=== PATIENT | male | born 1975 | race Caucasian/White ===

== ENCOUNTER → 2019-10-31 09:12 | Outpatient (BNVA) | payer MEDICAID, SELFPAY | PROVIDERS: Visit Provider Orthopaedic Surgery | DX: M25.512 Pain in left shoulder (principal) | CPT/HCPCS: 73030 ==

== ENCOUNTER 2019-11-10 12:46 | Outpatient (CLI) | payer MEDICAID, SELFPAY ==
--- NOTE | 2019-11-10 13:00 | MR_ITS ---
WS: [id number] MRI LEFT SHOULDER HISTORY: pain COMPARISON: Shoulder radiograph 10/31/2019 TECHNIQUE: Multiplanar sequences of the shoulder joint are submitted. Increased T2 signal in the distal clavicle and the acromion and through the AC joint. The acromioclav icular alignment and ligament are normal. No widening of the AC joint. No significant dislocation. In creased T2 signal through the acromioclavicular ligament with narrowing of the AC joint. Small amount of fluid in the subacromial and subdeltoid bursa. No discrete fracture is identified. No rotator cuff tear. No muscle atrophy or increased signal. Biceps tendon is in good position. No la bral tear. MR/MR shoulder LT wo con* [id number] IMPRESSION: 1. Posttraumatic marrow edema involving the distal clavicle and adjacent acrom ion with a mild AC ligament sprain. 2. No fracture. 3. No displacement of the clavicle. 4. No rotator cuff tear.
== END 2019-11-10 12:47 | disposition home or self-care (01) ==
LOC: RADSHAW 12:49
PROVIDERS: Visit Provider Orthopaedic Surgery
DX: M25.512 Pain in left shoulder (principal)
CPT/HCPCS: 73221